=== PATIENT | male | born 1965 | race African-American/Black ===

== ENCOUNTER 2017-06-18 11:54 | Emergency (ER) | payer MEDICAID ==
[2017-06-18 13:26] LABS: BASOPHILS 0.1 % (0-2); EOSINOPHILS 6.1 % (0-7); HEMATOCRIT 39.2 % (42.0-54.0); HEMOGLOBIN 13.4 g/dL (13.5-17.5); IMMATURE GRANULOCYTES 0.1 % (0-5); LYMPHOCYTES 29.7 % (15-50); MCH 30.2 pg (26.0-34.0); MCHC 34.2 g/dL (31.0-37.0); MCV 88.3 fL (80.0-100.0); MEAN PLATELET VOLUME 10.2 fL (7.4-10.4); MONOCYTES 12.4 % (2-11); NEUTROPHILS 51.6 % (40-80); RBC 4.44 10x6/uL (4.20-6.10); RDW 13.5 % (11.5-14.5); WBC 6.9 10x3/uL (4.8-10.8)
[2017-06-18 13:35] LABS: PLATELET COUNT 189 10x3/uL (130-400)
[2017-06-18 13:57] LABS: ALBUMIN 3.8 g/dL (3.4-5.0); ALKALINE PHOSPHATASE 106 U/L (46-116); ALT (SGPT) 31 U/L (10-68); BILIRUBIN - TOTAL 1.22 mg/dL (0.2-1.3); CALC OSMOLALITY 275 mosm/kg (275-300); CALCIUM 9.3 mg/dL (8.5-10.1); CARBON DIOXIDE 26.4 mmol/L (21.0-32.0); CHLORIDE - SERUM 101 mmol/L (98-107); CREATININE - SERUM 0.8 mg/dL (0.6-1.3); GLUCOSE 104 mg/dL (74-106); MAGNESIUM - SERUM 1.8 mg/dL (1.8-2.4); POTASSIUM - SERUM 3.7 mmol/L (3.5-5.1); PROTEIN - SERUM 7.4 g/dL (6.4-8.2); SODIUM 138 mmol/L (136-145); UREA NITROGEN 13 mg/dL (7-18); eGFR NON AFRICAN AMERICAN > 90 mL/min (90-120)
== END 2017-06-18 14:14 | disposition home or self-care (01) ==
LOC: D.ER 11:54
PROVIDERS: Emergency Medicine
DX: M79.1 Myalgia (principal); I10 Essential (primary) hypertension; F17.200 Nicotine dependence, unspecified, uncomplicated

== ENCOUNTER 2018-04-24 11:52 | Emergency (ER) | payer MEDICAID ==
[~2018-04-24] VITALS: Ht 180.3 cm; Wt 84.1 kg
[2018-04-24 12:16] VITALS: Ht 180.3 cm; Wt 84.1 kg
[2018-04-24] MEDS ORDERED: VIBRAMYCIN 100100 MG PO (13:00)
[2018-04-24] MEDS ORDERED: VOLTAREN75 MG PO (13:00)
[2018-04-24 13:37] VITALS: BP 136/74
== END 2018-04-24 13:38 | disposition home or self-care (01) ==
LOC: D.ER 11:52
DX: L03.115 Cellulitis of right lower limb (principal); R51 Headache; S80.211A Abrasion, right knee, initial encounter; X58.XXXA Exposure to other specified factors, initial encounter; Y93.89 Activity, other specified; Y92.019 Unspecified place in single-family (private) house as the place of occurrence of the external cause; F17.200 Nicotine dependence, unspecified, uncomplicated

== ENCOUNTER 2018-05-20 04:53 | Emergency (ER) | payer MEDICAID ==
[~2018-05-20] VITALS: Ht 180.3 cm; Wt 81.8 kg
[~2018-05-20 04:53] MED LIST: VIBRAMYCIN 100100 MG PO; VOLTAREN75 MG PO
[2018-05-20 04:56] VITALS: Ht 180.3 cm; Wt 81.8 kg
[2018-05-20 05:28] VITALS: BP 157/89
== END 2018-05-20 05:31 | disposition home or self-care (01) ==
LOC: D.ER 04:53
DX: F10.10 Alcohol abuse, uncomplicated (principal); G40.909 Epilepsy, unspecified, not intractable, without status epilepticus; F17.200 Nicotine dependence, unspecified, uncomplicated

== ENCOUNTER 2018-06-11 15:01 | Emergency (ER) | payer MEDICAID ==
[~2018-06-11] VITALS: Ht 180.3 cm; Wt 81.8 kg
[2018-06-11 15:10] VITALS: BP 158/96; Ht 180.3 cm; Wt 81.8 kg
== END 2018-06-11 15:40 | disposition left against medical advice (07) ==
LOC: D.ER 15:01
DX: R21 Rash and other nonspecific skin eruption (principal); F17.200 Nicotine dependence, unspecified, uncomplicated

== ENCOUNTER 2018-10-21 11:59 | Emergency (ER) | payer MEDICAID ==
[~2018-10-21] VITALS: Ht 180.3 cm; Wt 84.1 kg
[2018-10-21 12:16] VITALS: BP 143/84; Ht 180.3 cm; Wt 84.1 kg
== END 2018-10-21 13:58 | disposition left against medical advice (07) ==
LOC: D.ER 11:59
DX: Z76.5 Malingerer [conscious simulation] (principal); G89.29 Other chronic pain; R21 Rash and other nonspecific skin eruption

== ENCOUNTER 2018-10-23 10:42 | Emergency (ER) | payer MEDICAID ==
[~2018-10-23] VITALS: Ht 180.3 cm; Wt 84.1 kg
[2018-10-23 10:52] VITALS: Ht 180.3 cm; Wt 84.1 kg
[2018-10-23] MEDS ORDERED: TORADOL10 MG PO (12:33)
[2018-10-23] MEDS ORDERED: KENALOG 0.1 % 115 GM TOPICAL (12:33)
[2018-10-23 12:57] VITALS: BP 164/94
== END 2018-10-23 12:57 | disposition home or self-care (01) ==
LOC: D.ER 10:42
DX: L30.9 Dermatitis, unspecified (principal); F17.200 Nicotine dependence, unspecified, uncomplicated

== ENCOUNTER 2019-03-05 02:09 | Emergency (ER) | payer MEDICAID ==
[~2019-03-05] VITALS: Ht 180.3 cm; Wt 84.1 kg
[~2019-03-05 02:09] MED LIST changes: +KENALOG 0.1 % 115 GM TOPICAL; +TORADOL10 MG PO
[2019-03-05 02:15] VITALS: Ht 180.3 cm; Wt 84.1 kg
[2019-03-05] MEDS ORDERED: HYDROCODON-ACE1 EAC2 PO (02:16)
[2019-03-05 02:52] LABS: BASOPHILS 0.6 % (0-2); EOSINOPHILS 2.7 % (0-7); HEMATOCRIT 34.4 % (42.0-54.0); IMMATURE GRANULOCYTES 0.2 % (0-5); LYMPHOCYTES 35.9 % (15-50); MCH 31.4 pg (26.0-34.0); MCHC 34.9 g/dL (31.0-37.0); MCV 90.1 fL (80.0-100.0); MEAN PLATELET VOLUME 10.8 fL (7.4-10.4); MONOCYTES 7.7 % (2-11); NEUTROPHILS 52.9 % (40-80); RBC 3.82 10x6/uL (4.20-6.10); RDW 16.1 % (11.5-14.5); WBC 6.6 10x3/uL (4.8-10.8)
[2019-03-05 03:00] LABS: PLATELET COUNT 228 10x3/uL (130-400)
[2019-03-05 03:04] LABS: ALBUMIN 4.1 g/dL (3.4-5.0); ALKALINE PHOSPHATASE 57 U/L (46-116); ALT (SGPT) 53 U/L (10-68); BILIRUBIN - TOTAL 0.56 mg/dL (0.2-1.3); CALC OSMOLALITY 287 mosm/kg (275-300); CALCIUM 8.5 mg/dL (8.5-10.1); CARBON DIOXIDE 24.4 mmol/L (21.0-32.0); CHLORIDE - SERUM 105 mmol/L (98-107); CREATININE - SERUM 0.9 mg/dL (0.6-1.3); GLUCOSE 94 mg/dL (74-106); POTASSIUM - SERUM 3.4 mmol/L (3.5-5.1); PROTEIN - SERUM 8.3 g/dL (6.4-8.2); SODIUM 144 mmol/L (136-145); UREA NITROGEN 14 mg/dL (7-18); eGFR NON AFRICAN AMERICAN > 90 mL/min (90-120)
[2019-03-05 03:10] LABS: AMYLASE - SERUM 75 U/L (25-115); LIPASE 174 U/L (73-393); TROPONIN-I 0.032 ng/mL (0.000-0.060)
[2019-03-05] MEDS ORDERED: NAPROSYN500 MG PO (04:06)
[2019-03-05] MEDS ORDERED: DULCOLAX STOOL100 MG PO (04:06)
[2019-03-05 04:24] VITALS: BP 142/84
== END 2019-03-05 04:26 | disposition home or self-care (01) ==
LOC: D.ER 02:09
PROVIDERS: Family Medicine
DX: K59.00 Constipation, unspecified (principal); M94.0 Chondrocostal junction syndrome [Tietze]

== ENCOUNTER 2019-04-28 15:09 | Emergency (ER) | payer MEDICAID ==
[~2019-04-28] VITALS: Ht 180.3 cm; Wt 81.8 kg
[~2019-04-28 15:09] MED LIST changes: +DULCOLAX STOOL100 MG PO; +HYDROCODON-ACE1 EAC2 PO; +NAPROSYN500 MG PO
[2019-04-28 15:26] VITALS: Ht 180.3 cm; Wt 81.8 kg
[2019-04-28] MEDS ORDERED: SEIZURE MED (15:31)
[2019-04-28 16:12] LABS: BASOPHILS 0.3 % (0-2); HEMATOCRIT 35.3 % (42.0-54.0); HEMOGLOBIN 12.4 g/dL (13.5-17.5); IMMATURE GRANULOCYTES 0.2 % (0-5); LYMPHOCYTES 18.3 % (15-50); MCH 32.6 pg (26.0-34.0); MCHC 35.1 g/dL (31.0-37.0); MCV 92.9 fL (80.0-100.0); MEAN PLATELET VOLUME 10.7 fL (7.4-10.4); MONOCYTES 14.9 % (2-11); NEUTROPHILS 63.3 % (40-80); PLATELET COUNT 244 10x3/uL (130-400); RDW 16.2 % (11.5-14.5); WBC 8.9 10x3/uL (4.8-10.8)
[2019-04-28 16:30] LABS: ALBUMIN 4.6 g/dL (3.4-5.0); ALKALINE PHOSPHATASE 66 U/L (46-116); ALT (SGPT) 70 U/L (10-68); AMYLASE - SERUM 225 U/L (25-115); BILIRUBIN - TOTAL 0.69 mg/dL (0.2-1.3); CALC OSMOLALITY 279 mosm/kg (275-300); CALCIUM 9.7 mg/dL (8.5-10.1); CARBON DIOXIDE 23.8 mmol/L (21.0-32.0); CHLORIDE - SERUM 98 mmol/L (98-107); CREATININE - SERUM 1.7 mg/dL (0.6-1.3); GLUCOSE 92 mg/dL (74-106); LIPASE 591 U/L (73-393); POTASSIUM - SERUM 3.2 mmol/L (3.5-5.1); PROTEIN - SERUM 8.9 g/dL (6.4-8.2); SODIUM 139 mmol/L (136-145); TROPONIN-I < 0.017 ng/mL (0.000-0.060); UREA NITROGEN 18 mg/dL (7-18); eGFR NON AFRICAN AMERICAN 45 mL/min (90-120)
[2019-04-28 16:59] LABS: APPEARANCE CLEAR (CLEAR); BILIRUBIN NEGATIVE (NEGATIVE); COLOR YELLOW (YELLOW); GLUCOSE NEGATIVE (NEGATIVE); KETONE NEGATIVE (NEGATIVE); NITRITE NEGATIVE (NEGATIVE); PROTEIN TRACE mg/dL (NEGATIVE); SPECIFIC GRAVITY 1.025 (1.005-1.020); UROBILINOGEN NORMAL (NORMAL)
[2019-04-28] MEDS ORDERED: FLAGYL500 MG PO (20:05)
[2019-04-28] MEDS ORDERED: BENTYL 20 MG TA20 MG PO (20:05)
[2019-04-28] MEDS ORDERED: CIPRO500 MG PO (20:05)
[2019-04-28 20:19] VITALS: BP 112/78
== END 2019-04-28 20:20 | disposition home or self-care (01) ==
LOC: D.ER 15:09
PROVIDERS: Family Medicine
DX: K52.9 Noninfective gastroenteritis and colitis, unspecified (principal); K85.90 Acute pancreatitis without necrosis or infection, unspecified

== ENCOUNTER 2019-10-05 16:10 | Emergency (ER) | payer MEDICAID ==
[~2019-10-05] VITALS: Ht 180.3 cm; Wt 81.8 kg
[~2019-10-05 16:10] MED LIST changes: +BENTYL 20 MG TA20 MG PO; +CIPRO500 MG PO; +FLAGYL500 MG PO; +SEIZURE MED
[2019-10-05 16:19] VITALS: Ht 180.3 cm; Wt 81.8 kg
[2019-10-05] MEDS ORDERED: [UNRECOGNIZED DRUG - REMARK] (16:19)
[2019-10-05] MEDS ORDERED: PERMETHRIN60 GM TOPICAL (17:52)
[2019-10-05 18:23] VITALS: BP 152/83
== END 2019-10-05 18:23 | disposition home or self-care (01) ==
LOC: D.ER 16:10
DX: B86 Scabies (principal); I10 Essential (primary) hypertension; Z72.0 Tobacco use

== ENCOUNTER 2019-12-01 00:25 | Emergency (ER) | payer OTHER ==
[~2019-12-01] VITALS: Ht 180.3 cm; Wt 81.8 kg
[~2019-12-01 00:25] MED LIST changes: +PERMETHRIN60 GM TOPICAL; +[UNRECOGNIZED DRUG - REMARK]
[2019-12-01 00:29] VITALS: Ht 180.3 cm; Wt 81.8 kg
[2019-12-01] MEDS ORDERED: LIBRIUM25 MG PO (00:31)
[2019-12-01] MEDS ORDERED: LEVOFLOXACIN500 MG PO (00:31)
[2019-12-01] MEDS ORDERED: TOPROL XL25 MG (00:31)
[2019-12-01 01:21] LABS: BASOPHILS 0.2 % (0-2); EOSINOPHILS 5.5 % (0-7); HEMATOCRIT 35.1 % (42.0-54.0); HEMOGLOBIN 11.8 g/dL (13.5-17.5); IMMATURE GRANULOCYTES 0.5 % (0-5); LYMPHOCYTES 26.2 % (15-50); MCH 31.6 pg (26.0-34.0); MCHC 33.6 g/dL (31.0-37.0); MCV 94.1 fL (80.0-100.0); MEAN PLATELET VOLUME 11.3 fL (7.4-10.4); MONOCYTES 10.2 % (2-11); NEUTROPHILS 57.4 % (40-80); RBC 3.73 10x6/uL (4.20-6.10); RDW 15.3 % (11.5-14.5); WBC 6.2 10x3/uL (4.8-10.8)
[2019-12-01 01:24] LABS: PLATELET COUNT 174 10x3/uL (130-400)
[2019-12-01 01:29] LABS: CALC OSMOLALITY 268 mosm/kg (275-300); CALCIUM 9.1 mg/dL (8.5-10.1); CHLORIDE - SERUM 98 mmol/L (98-107); CREATININE - SERUM 1.2 mg/dL (0.6-1.3); GLUCOSE 88 mg/dL (74-106); POTASSIUM - SERUM 3.3 mmol/L (3.5-5.1); SODIUM 134 mmol/L (136-145); UREA NITROGEN 17 mg/dL (7-18); eGFR NON AFRICAN AMERICAN 67 mL/min (90-120)
[2019-12-01 01:30] LABS: APTT 34.2 SECONDS (22.8-39.4); INR 1.08 (0.85-1.17); PROTIME 13.9 SECONDS (11.6-15.0)
[2019-12-01 01:46] LABS: ALBUMIN 4.1 g/dL (3.4-5.0); ALKALINE PHOSPHATASE 62 U/L (30-120); ALT (SGPT) 47 U/L (10-68); CKMB 1.6 U/L (0.0-3.6); CREATINE KINASE 259 UL (21-232); MAGNESIUM - SERUM 1.3 mg/dL (1.8-2.4); PROTEIN - SERUM 8.2 g/dL (6.4-8.2)
[2019-12-01 01:49] LABS: TROPONIN-I < 0.017 ng/mL (0.000-0.060)
[2019-12-01] MEDS ORDERED: ULTRAM50 MG PO (02:04)
[2019-12-01 02:16] VITALS: BP 116/83
== END 2019-12-01 02:16 | disposition home or self-care (01) ==
LOC: D.ER 00:25
PROVIDERS: Emergency Medicine
DX: R07.89 Other chest pain (principal); D64.9 Anemia, unspecified; E87.6 Hypokalemia; M54.2 Cervicalgia; I10 Essential (primary) hypertension; Z72.0 Tobacco use

== ENCOUNTER 2019-12-04 07:49 | Emergency (ER) | payer OTHER ==
[~2019-12-04] VITALS: Ht 180.3 cm; Wt 81.8 kg
[~2019-12-04 07:49] MED LIST changes: +LEVOFLOXACIN500 MG PO; +LIBRIUM25 MG PO; +TOPROL XL25 MG; +ULTRAM50 MG PO
[2019-12-04 07:52] VITALS: BP 161/93; Ht 180.3 cm; Wt 81.8 kg
[2019-12-04] MEDS ORDERED: STERAPRED DS 1210 MG PO (08:09)
[2019-12-04] MEDS ORDERED: KENALOG 0.1 % 115 GM TOPICAL (08:09)
== END 2019-12-04 08:28 | disposition home or self-care (01) ==
LOC: D.ER 07:49
DX: L20.9 Atopic dermatitis, unspecified (principal); I10 Essential (primary) hypertension; Z72.0 Tobacco use

== ENCOUNTER 2019-12-09 00:56 | Emergency (ER) | payer OTHER ==
[~2019-12-09] VITALS: Ht 180.3 cm; Wt 84.1 kg
[~2019-12-09 00:56] MED LIST changes: +STERAPRED DS 1210 MG PO
[2019-12-09 00:58] VITALS: Ht 180.3 cm; Wt 84.1 kg
[2019-12-09 01:59] LABS: ANION GAP 14.7 mmol/L (8-16); CALCIUM 8.6 mg/dL (8.5-10.1); CARBON DIOXIDE 26.5 mmol/L (21.0-32.0); CREATININE - SERUM 1.9 mg/dL (0.6-1.3); POTASSIUM - SERUM 3.2 mmol/L (3.5-5.1)
[2019-12-09 02:11] LABS: BILIRUBIN NEGATIVE (NEGATIVE); GLUCOSE NEGATIVE (NEGATIVE); KETONE NEGATIVE (NEGATIVE); NITRITE NEGATIVE (NEGATIVE); UROBILINOGEN NORMAL (NORMAL)
[2019-12-09 02:12] LABS: RED CELLS - URINE RARE /hpf (0-5); WHITE CELLS - URINE RARE /hpf (NEGATIVE)
[2019-12-09 02:12] LABS: APTT 26.5 SECONDS (22.8-39.4); INR 1.09 (0.85-1.17); PROTIME 14.1 SECONDS (11.6-15.0)
[2019-12-09 02:13] LABS: AMORPHOUS SEDIMENT >1+ /lpf (NONE SEEN); BACTERIA FEW /hpf (NEGATIVE)
[2019-12-09 02:16] LABS: ALBUMIN 3.9 g/dL (3.4-5.0); BILIRUBIN - TOTAL 0.48 mg/dL (0.2-1.3); HEMOGLOBIN 13.6 g/dL (13.5-17.5); MAGNESIUM - SERUM 1.8 mg/dL (1.8-2.4); MCH 31.8 pg (26.0-34.0); MCV 93.5 fL (80.0-100.0); MEAN PLATELET VOLUME 10.2 fL (7.4-10.4); PROTEIN - SERUM 7.9 g/dL (6.4-8.2); RBC 4.28 10x6/uL (4.20-6.10); RDW 15.5 % (11.5-14.5); THYROID STIMULATING HORMONE 2.56 uIU/mL (0.36-3.74); TROPONIN-I 0.019 ng/mL (0.000-0.060); WBC 6.9 10x3/uL (4.8-10.8)
[2019-12-09 02:18] LABS: PLATELET COUNT 311 10x3/uL (130-400)
[2019-12-09 02:19] LABS: UDS - AMPHET NEGATIVE QUAL (NEGATIVE); UDS - BARB NEGATIVE QUAL (NEGATIVE); UDS - BENZO POSITIVE QUAL (NEGATIVE); UDS - COCAINE NEGATIVE QUAL (NEGATIVE); UDS - OPIATE NEGATIVE QUAL (NEGATIVE); UDS - PCP NEGATIVE QUAL (NEGATIVE); UDS - THC NEGATIVE QUAL (NEGATIVE)
[2019-12-09 02:39] LABS: LYMPHOCYTES 49 % (15-50); NEUTROPHILS 51 % (40-80); PLATELET ESTIMATE NORMAL
[2019-12-09 02:40] LABS: ANISOCYTOSIS OCC; ROULEAUX 1+
[2019-12-09] MEDS ORDERED: AMOXICILLIN875 MG PO (06:31)
[2019-12-09] MEDS ORDERED: AZITHROMYCIN500 MG PO (06:31)
[2019-12-09 12:56] VITALS: BP 109/67
== END 2019-12-09 13:19 | disposition home or self-care (01) ==
LOC: D.ER 00:56
PROVIDERS: Family Medicine
DX: F10.929 Alcohol use, unspecified with intoxication, unspecified (principal); Y90.8 Blood alcohol level of 240 mg/100 ml or more; L30.9 Dermatitis, unspecified; G89.29 Other chronic pain; Z98.890 Other specified postprocedural states; I10 Essential (primary) hypertension; R07.9 Chest pain, unspecified

== ENCOUNTER 2019-12-12 21:52 | Emergency (ER) | payer OTHER ==
[~2019-12-12] VITALS: Ht 180.3 cm; Wt 81.8 kg
[~2019-12-12 21:52] MED LIST changes: +AMOXICILLIN875 MG PO; +AZITHROMYCIN500 MG PO
[2019-12-12 22:12] VITALS: Ht 180.3 cm; Wt 81.8 kg
[2019-12-12 22:16] LABS: BILIRUBIN NEGATIVE (NEGATIVE); GLUCOSE NEGATIVE (NEGATIVE); KETONE NEGATIVE (NEGATIVE); NITRITE NEGATIVE (NEGATIVE); UROBILINOGEN NORMAL (NORMAL)
[2019-12-12 22:22] LABS: HEMATOCRIT 39.2 % (42.0-54.0); HEMOGLOBIN 12.9 g/dL (13.5-17.5); MCH 31.5 pg (26.0-34.0); MCHC 32.9 g/dL (31.0-37.0); MCV 95.6 fL (80.0-100.0); MEAN PLATELET VOLUME 10.7 fL (7.4-10.4); RDW 16.5 % (11.5-14.5); WBC 5.5 10x3/uL (4.8-10.8)
[2019-12-12 22:24] LABS: UDS - AMPHET NEGATIVE QUAL (NEGATIVE); UDS - BARB NEGATIVE QUAL (NEGATIVE); UDS - BENZO POSITIVE QUAL (NEGATIVE); UDS - COCAINE NEGATIVE QUAL (NEGATIVE); UDS - OPIATE NEGATIVE QUAL (NEGATIVE); UDS - PCP NEGATIVE QUAL (NEGATIVE); UDS - THC NEGATIVE QUAL (NEGATIVE)
[2019-12-12 22:27] LABS: INR 1.05 (0.85-1.17); PROTIME 13.7 SECONDS (11.6-15.0)
[2019-12-12 22:28] LABS: PLATELET COUNT 193 10x3/uL (130-400)
[2019-12-12 22:29] LABS: CALC OSMOLALITY 296 mosm/kg (275-300); CALCIUM 8.8 mg/dL (8.5-10.1); CARBON DIOXIDE 31.5 mmol/L (21.0-32.0); CHLORIDE - SERUM 107 mmol/L (98-107); CREATININE - SERUM 0.9 mg/dL (0.6-1.3); GLUCOSE 96 mg/dL (74-106); POTASSIUM - SERUM 4.3 mmol/L (3.5-5.1); SODIUM 149 mmol/L (136-145); UREA NITROGEN 15 mg/dL (7-18); eGFR NON AFRICAN AMERICAN > 90 mL/min (90-120)
[2019-12-12 22:41] LABS: EOSINOPHILS 2 % (0-7); LYMPHOCYTES 54 % (15-50); MONOCYTES 2 % (2-11); NEUTROPHILS 41 % (40-80); PLATELET ESTIMATE NORMAL
[2019-12-12 22:42] LABS: ALBUMIN 3.9 g/dL (3.4-5.0); ALKALINE PHOSPHATASE 69 U/L (30-120); ALT (SGPT) 32 U/L (10-68); BILIRUBIN - TOTAL 0.51 mg/dL (0.2-1.3); CKMB 1.4 U/L (0.0-3.6); CREATINE KINASE 244 UL (21-232); MAGNESIUM - SERUM 2.1 mg/dL (1.8-2.4); PROTEIN - SERUM 8.1 g/dL (6.4-8.2)
[2019-12-12 22:43] LABS: TROPONIN-I < 0.017 ng/mL (0.000-0.060)
[2019-12-12 22:50] LABS: APTT 23.5 SECONDS (22.8-39.4)
[2019-12-13 12:06] VITALS: BP 142/83
== END 2019-12-13 12:07 | disposition home or self-care (01) ==
LOC: D.ER 21:52
PROVIDERS: Family Medicine
DX: F10.129 Alcohol abuse with intoxication, unspecified (principal); D64.9 Anemia, unspecified; R07.9 Chest pain, unspecified; S09.90XA Unspecified injury of head, initial encounter; X58.XXXA Exposure to other specified factors, initial encounter; I10 Essential (primary) hypertension

== ENCOUNTER 2019-12-14 01:28 | Emergency (ER) | payer OTHER ==
[~2019-12-14] VITALS: Ht 180.3 cm; Wt 86.4 kg
[2019-12-14 01:30] VITALS: Ht 180.3 cm; Wt 86.4 kg
[2019-12-14 01:57] LABS: BASOPHILS 0.3 % (0-2); EOSINOPHILS 2.8 % (0-7); HEMATOCRIT 36.9 % (42.0-54.0); HEMOGLOBIN 12.4 g/dL (13.5-17.5); IMMATURE GRANULOCYTES 0.3 % (0-5); LYMPHOCYTES 48.3 % (15-50); MCH 31.7 pg (26.0-34.0); MCHC 33.6 g/dL (31.0-37.0); MCV 94.4 fL (80.0-100.0); MEAN PLATELET VOLUME 10.9 fL (7.4-10.4); MONOCYTES 9.7 % (2-11); NEUTROPHILS 38.6 % (40-80); PLATELET COUNT 190 10x3/uL (130-400); RBC 3.91 10x6/uL (4.20-6.10); RDW 16.3 % (11.5-14.5); WBC 6.1 10x3/uL (4.8-10.8)
[2019-12-14 02:03] LABS: CALC OSMOLALITY 284 mosm/kg (275-300); CALCIUM 8.7 mg/dL (8.5-10.1); CARBON DIOXIDE 25.1 mmol/L (21.0-32.0); CHLORIDE - SERUM 105 mmol/L (98-107); CREATININE - SERUM 0.9 mg/dL (0.6-1.3); GLUCOSE 88 mg/dL (74-106); POTASSIUM - SERUM 3.7 mmol/L (3.5-5.1); SODIUM 143 mmol/L (136-145); UREA NITROGEN 15 mg/dL (7-18); eGFR NON AFRICAN AMERICAN > 90 mL/min (90-120)
[2019-12-14 02:04] LABS: INR 0.99 (0.85-1.17); PROTIME 13.1 SECONDS (11.6-15.0)
[2019-12-14 02:17] LABS: ALBUMIN 3.9 g/dL (3.4-5.0); ALKALINE PHOSPHATASE 79 U/L (30-120); ALT (SGPT) 32 U/L (10-68); BILIRUBIN - TOTAL 0.57 mg/dL (0.2-1.3); LIPASE 175 U/L (73-393); PROTEIN - SERUM 8.1 g/dL (6.4-8.2)
[2019-12-14 15:27] VITALS: BP 188/98
== END 2019-12-14 15:34 | disposition home or self-care (01) ==
LOC: D.ER 01:28
PROVIDERS: Emergency Medicine
DX: F10.129 Alcohol abuse with intoxication, unspecified (principal); Y90.8 Blood alcohol level of 240 mg/100 ml or more; D64.9 Anemia, unspecified; Z72.0 Tobacco use

== ENCOUNTER 2019-12-18 10:57 | Emergency (ER) | payer OTHER ==
[~2019-12-18] VITALS: Ht 180.3 cm; Wt 81.8 kg
[2019-12-18 11:05] VITALS: Ht 180.3 cm; Wt 81.8 kg
[2019-12-18 12:08] LABS: CALC OSMOLALITY 284 mosm/kg (275-300); CALCIUM 8.9 mg/dL (8.5-10.1); CARBON DIOXIDE 22.2 mmol/L (21.0-32.0); CHLORIDE - SERUM 102 mmol/L (98-107); CREATININE - SERUM 1.1 mg/dL (0.6-1.3); GLUCOSE 106 mg/dL (74-106); POTASSIUM - SERUM 3.5 mmol/L (3.5-5.1); SODIUM 138 mmol/L (136-145); UREA NITROGEN 37 mg/dL (7-18); eGFR NON AFRICAN AMERICAN 74 mL/min (90-120)
[2019-12-18 12:10] LABS: BASOPHILS 0.2 % (0-2); EOSINOPHILS 7.7 % (0-7); HEMATOCRIT 35.5 % (42.0-54.0); HEMOGLOBIN 11.7 g/dL (13.5-17.5); IMMATURE GRANULOCYTES 0.2 % (0-5); LYMPHOCYTES 33.6 % (15-50); MCH 31.1 pg (26.0-34.0); MCV 94.4 fL (80.0-100.0); MEAN PLATELET VOLUME 10.2 fL (7.4-10.4); MONOCYTES 16.4 % (2-11); NEUTROPHILS 41.9 % (40-80); PLATELET COUNT 156 10x3/uL (130-400); RBC 3.76 10x6/uL (4.20-6.10); RDW 16.4 % (11.5-14.5); WBC 5.1 10x3/uL (4.8-10.8)
[2019-12-18 12:14] LABS: APTT 27.6 SECONDS (22.8-39.4); INR 0.97 (0.85-1.17); PROTIME 12.9 SECONDS (11.6-15.0)
[2019-12-18 12:26] LABS: ALBUMIN 4.1 g/dL (3.4-5.0); ALKALINE PHOSPHATASE 101 U/L (30-120); ALT (SGPT) 47 U/L (10-68); BILIRUBIN - TOTAL 0.28 mg/dL (0.2-1.3); C-REACTIVE PROTEIN < 0.2 mg/dL (0.0-0.9); CKMB 1.7 U/L (0.0-3.6); CREATINE KINASE 317 UL (21-232); MAGNESIUM - SERUM 2.2 mg/dL (1.8-2.4); PROTEIN - SERUM 8.3 g/dL (6.4-8.2); TROPONIN-I < 0.017 ng/mL (0.000-0.060)
[2019-12-18 17:03] VITALS: BP 116/62
== END 2019-12-18 19:10 | disposition home or self-care (01) ==
LOC: D.ER 10:57
PROVIDERS: Emergency Medicine
DX: F10.10 Alcohol abuse, uncomplicated (principal); Y90.8 Blood alcohol level of 240 mg/100 ml or more; E86.0 Dehydration; Z72.0 Tobacco use

== ENCOUNTER 2020-01-12 15:00 | Emergency (ER) | payer OTHER ==
[~2020-01-12] VITALS: Ht 180.3 cm; Wt 81.8 kg
[2020-01-12 15:09] VITALS: BP 111/58; Ht 180.3 cm; Wt 81.8 kg
== END 2020-01-12 16:10 | disposition home or self-care (01) ==
LOC: D.ER 15:00
DX: L82.1 Other seborrheic keratosis (principal); F10.10 Alcohol abuse, uncomplicated

== ENCOUNTER 2020-02-26 16:26 | Emergency (ER) | payer OTHER ==
[~2020-02-26] VITALS: Ht 180.3 cm; Wt 84.1 kg
[2020-02-26 16:47] VITALS: BP 119/85; Ht 180.3 cm; Wt 84.1 kg
== END 2020-02-26 20:50 | disposition home or self-care (01) ==
LOC: D.ER 16:26
DX: Z76.5 Malingerer [conscious simulation] (principal); F10.129 Alcohol abuse with intoxication, unspecified; M79.10 Myalgia, unspecified site

== ENCOUNTER 2020-11-19 10:03 | Emergency (ER) | payer OTHER ==
[~2020-11-19] VITALS: Ht 180.3 cm; Wt 84.1 kg
[~2020-11-19 10:03] MED LIST changes: +KEFLEX500 MG PO; +KEPPRA500 MG PO; +STERAPRED DS 1010 MG PO; +[UNRECOGNIZED DRUG - REMARK]
[2020-11-19 10:18] VITALS: BP 134/77; Ht 180.3 cm; Wt 84.1 kg
[2020-11-19] MEDS ORDERED: KENALOG 0.1 % O15 GM TOPICAL (10:22)
[2020-11-19] MEDS ORDERED: VOLTAREN75 MG PO (10:37)
[2020-11-19] MEDS ORDERED: STERAPRED DS 1010 MG PO (10:37)
== END 2020-11-19 10:41 | disposition home or self-care (01) ==
LOC: D.ER 10:03
DX: L40.9 Psoriasis, unspecified (principal); I10 Essential (primary) hypertension; R52 Pain, unspecified

== ENCOUNTER 2021-03-04 15:56 | Emergency (ER) | payer OTHER ==
[~2021-03-04] VITALS: Ht 180.3 cm; Wt 86.4 kg
[~2021-03-04 15:56] MED LIST changes: +KENALOG 0.1 % O15 GM TOPICAL
[2021-03-04 16:11] VITALS: BP 126/98; Ht 180.3 cm; Wt 86.4 kg
[2021-03-04] MEDS ORDERED: HYDROXYZINE HCL50 MG PO (18:41)
[2021-03-04] MEDS ORDERED: PERMETHRIN60 GM TOPICAL (18:41)
== END 2021-03-04 19:30 | disposition home or self-care (01) ==
LOC: D.ER 15:56
DX: L30.9 Dermatitis, unspecified (principal); I10 Essential (primary) hypertension; Z72.0 Tobacco use